=== PATIENT | male | born 2005 ===

== ENCOUNTER 2024-08-02 08:57 | Emergency (ER) | payer MEDICAID, SELFPAY ==
[2024-08-02 09:05] VITALS: BP 139/68
--- NOTE | 2024-08-02 09:46 | CM ---
Addendum entered by Mayi Dunham RN 08/02/24 10:50:
CM spoke with patient regarding his hospitalization at [facility]. Patient stated that he went to [place] after his mother told him to go about a year ago. Patient was vague when CM inquired about the diagnosis that brought him to inpatient
psychiatry and stated that his 'mother was there and she said it was good'.
Patient stated that he would like to go to [facility] again if possible.
CM updated ED PA with patient's request to be seen by crisis.
Addendum entered by Mayi Dunham RN 08/02/24 10:10:
As per medical review review, patient has been to [place] in the past, but would not disclose why.
Original Note:
CM reviewed medical records. CM spoke with patient. CM inquired if CM can call patient's father for assistance. Patient stated that he does not want to speak to his father. Patient refused to given any further emergency contacts. Patient does not
have a housing solution and stated, 'I guess I'll just walk the streets'. CM advised that it was very cold and walking may not be safe.
CM left message for [facility] to assist with motel room.
--- NOTE | 2024-08-02 10:49 | ED.GENMED ---
History of Present Illness
General
Chief Complaint: Depression
Source: patient
Time Seen by Provider: 08/02/24 09:11
History of Present Illness
History of Present Illness:
18-year-old male presenting to ER with EMS for evaluation after he reportedly was kicked out of his home by grandmother today after a reported argument at home. 20 patient states that he he was on the phone with stepmom and father who wanted him to
come to the emergency department to be seen by Hammad Duran to 'get his mind right'. Patient denies any suicidal ideation, homicidal ideation, auditory or visual hallucinations, substance abuse and has no physical concerns at this time. Patient
does state that he has a tendency to get angry and upset and can often yell but states he feels calm at this time. Notes that he has been to [facility] before but is not disclosing why he had been there previously or when. When asked if
patient has a safe place to go he stated to me that it is none of my business.
Past History
Past History
ED Past Medical History: Psychiatric
ED Past Surgical History: Appendectomy
Social History
Tobacco: Non-smoker
Alcohol: None
Drug: None
Personal: Single
Employment: Not employed
Review of Systems
Review of Systems
All Other Systems: ROS reviewed and negative except as documented in HPI and ROS
Phy Exam
Physical Exam
Physical Exam:
GENERAL: Alert , in no apparent distress
EYE: conjunctiva clear
Head: Normocephalic atraumatic
NECK: Supple,
ENT: mmm.
LUNGS: no acute respiratory distress
NEUROLOGICAL: Alert and oriented
SKIN: Warm and dry, skin intact.
MUSCULOSKELETAL: well perfused.
PSYCH: Normal and appropriate interaction.
Scores
Heart Failure Risk
Heart Failure Risk Score: Not Applicable
Heart Score for Chest Pain Patients
STEMI patient?: Not applicable
Withdrawal Assessment of Alcohol
Withdrawal Assessment Completed?: Not applicable
Course
Orders/Labs/Results
Orders:
Orders
08/02/24 09:23
Case Management Consult ONCE
Case Management Consult: Discharge Planning
08/02/24 10:48
Crisis Consult Urgent
Reason for Consult: placement
Vital Signs
Initial and Last Documented VS:
Initial Vital Signs
Temp Pulse Resp BP Pulse Ox
98.1 F 66 16 139/68 98
08/02/24 09:05 08/02/24 09:05 08/02/24 09:05 08/02/24 09:05 08/02/24 09:05
Last Documented Vital Signs
Temp Pulse Resp BP Pulse Ox
98.1 F 66 16 139/68 98
08/02/24 09:05 08/02/24 09:05 08/02/24 09:05 08/02/24 09:05 08/02/24 09:05
MDM/Problems Addressed
Differential Diagnosis Includes:
Adjustment disorder, no current symptoms to suggest active suicidal or homicidal ideation, does not appear under the influence of any substances
MDM/Problems Addressed:
18-year-old presenting to the ER for evaluation after some type of argument with family earlier this morning. Patient stating no SI or HI or any current active psychiatric issue. Patient seems to have more of a case management and disposition
complication given we are currently unable to verify if he has a safe place to go once discharged. Will consult with case management. Disposition pending.
*Pulse Oximetry
Patient hypoxic: no
*Critical Care Note
Total Time (30-74mins, 75-104mins- exclusive of procedures): Not Applicable
Patient Management
Social determinants of health affecting care: Poor outpatient follow-up and Poor social support
Escalation/DeEscalation of care consider admission/obs:
Patient seen by case management who states patient would like to go to the [facility]. Given the disposition patient is looking for will have him evaluated by [facility] to see if they are able to help with this disposition.
ED Attending Note
-
Portions of this chart may have been created with voice recognition software.� Occasional wrong word or��sound alike� substitutions may have occurred due to the inherent limitations of voice recognition software.
Discharge Plan
Departure
Patient Disposition: [facility]
Date of Disposition: 08/02/24
Time of Disposition: 10:49
Patient with high blood pressure during this ER visit?: No
Discharge Problem:
Adjustment disorder with mixed disturbance of emotions and conduct
Referrals:
UNKNOWN - PT NOT,INTERVIEWE [Family Provider] -
Interventions
Interventions:
*Risk Screen - Suicide Last Done: 08/02/24 09:25
*General Assessment Last Done: 08/02/24 09:25
*Neglect/Abuse Screening Last Done: 08/02/24 09:25
ED- Fall Risk Assessment Last Done: 08/02/24 10:54
*ED COVID-19 Vaccine History Last Done: 08/02/24 09:14
*Nursing Disposition Last Done: 08/02/24 10:54
ED-Psychological Assessment Last Done: 08/02/24 09:26
Discharge Date and Time
Discharge Date/Time: 08/02/24 10:55
Print Language: ARABIC
--- NOTE | 2024-08-02 10:58 | CM ---
RAVEN spoke with Jensen from [employer]. Jensen stated that due to patient's age the hotels are unable to assist. Patient must be 20. Jensen stated that [facility] would be more appropriate for patient or [facility].
== END 2024-08-02 10:55 ==
LOC: EMR 08:57
PROVIDERS: EMERGENCY PHYSICIAN Emergency Medicine
DX: F43.25 Adjustment disorder with mixed disturbance of emotions and conduct (principal); F32.A Depression, unspecified; Z90.49 Acquired absence of other specified parts of digestive tract
CPT/HCPCS: 99284